=== PATIENT | male | born 1980 | race Caucasian/White ===

== ENCOUNTER 2021-03-17 16:24 | Emergency (ER) | payer MEDICAID, SELFPAY ==
[2021-03-17 16:27] VITALS: BP 155/109; PULSE 83; RESP 18; TEMP 36.7; O2SAT 99; BMI 25.8
--- NOTE | 2021-03-17 16:36 | XR_ITS ---
PROCEDURE INFORMATION: Exam: XR Left Foot Exam date and time: 03/17/2021 4:36 PM Age: 40 years old Clinical indication: Injury or trauma; Fall; Work related; Blunt trauma; Foot; Left; Injury date: Today; Additional info: Fall, pain TECHNIQUE: Imaging protocol: XR Left foot. Views: 3 or more views. COMPARISON: No relevant prior studies available. FINDINGS: Bones/joints: No evidence of acute fracture or dislocation. Note is made of old fracture deformities of the calcaneus. Note is again made of degenerative changes of the tibiotalar joint and internal fixation of the medial malleolus. Soft tissues: There is mild soft tissue swelling of the dorsum of the hindfoot. IMPRESSION: No evidence of acute fracture.
--- NOTE | 2021-03-17 16:36 | XR_ITS ---
PROCEDURE INFORMATION: Exam: XR Left Ankle Exam date and time: 03/17/2021 4:36 PM Age: 40 years old Clinical indication: Injury or trauma; Fall; Work related; Blunt trauma; Left; Injury date: Today; Injury details: Prior lt ankle surgery; Prior surgery; Surgery date: 6+ months; Additional info: Fall, pain TECHNIQUE: Imaging protocol: XR Left ankle. Views: 3 or more views. COMPARISON: No relevant prior studies available. FINDINGS: Bones/joints: No evidence of acute displaced fracture. Note is made of internal fixation of the medial malleolus. There are well corticated densities adjacent to the inferior aspect of the medial malleolus and adjacent to the anterior aspect of the distal tibia, likely the sequela of prior trauma. There is an irregular appearance of the distal tibia and the talar dome with lucencies of the lateral aspect of the tibial plafond and suspicious for degenerative changes. Soft tissues: There is mild soft tissue swelling surrounding the ankle joint. IMPRESSION: 1. No evidence of acute fracture. 2. Internal fixation of the medial malleolus. 3. Degenerative changes of the tibiotalar joint.
--- NOTE | 2021-03-17 16:36 | XR_ITS ---
PROCEDURE INFORMATION: Exam: XR Left Tibia and Fibula Exam date and time: 03/17/2021 4:36 PM Age: 40 years old Clinical indication: Injury or trauma; Fall; Work related; Blunt trauma; Left; Injury date: Today; Injury details: Prior lt ankle surgery; Prior surgery; Surgery date: 6+ months; Additional info: Fall, pain TECHNIQUE: Imaging protocol: XR Left tibia and fibula. Views: 2 views. COMPARISON: No relevant prior studies available. FINDINGS: Bones/joints: There is no acute fracture or dislocation. Note is made of internal fixation of the medial malleolus and a well corticated density along the inferior aspect of the medial malleolus, likely the sequela of prior trauma. Irregularity of the posterior malleolus may represent the sequela of prior trauma. Soft tissues: Normal. IMPRESSION: No evidence of acute fracture.
--- NOTE | 2021-03-17 16:37 | HMH.EDGENADL ---
ED Disposition Clinical Impression: Calcaneus fracture, left Qualifiers: Encounter type: initial encounter Calcaneus location: unspecified portion of calcaneus Fracture type: closed Fracture alignment: displaced Qualified Code(s): S92.002A - Unspecified fracture of left calcaneus, initial encounter for closed fracture Disposition: Home, Self-Care Condition on Discharge: Fair Instructions: DI for Foot Fracture Additional Instructions: You have been evaluated for injury to the left foot and ankle. Diagnosed with a calcaneus fracture. Please keep splint in place. Use crutches. Follow-up with Dr. Leslie Antonio in her clinic tomorrow morning at 8 AM. You will likely need surgery, but not until the swelling goes down. Take Tylenol and Motrin for pain. [place] for extreme pain. Zofran for nausea and vomiting. Return to the emergency department for any new or worsening symptoms, pain out of proportion, numbness or tingling in your foot Prescriptions: Hydrocod/Acet 5/325 mg [[place] 5/325mg tablet] 1 tab PO Q6HP PRN #12 tab PRN Reason: Severe Pain Transmission Status: Sent to [facility] ondansetron HCL [Ondansetron 4mg tab*] 4 mg PO TIDP PRN #12 tab PRN Reason: Vomiting Transmission Status: Pending to [facility] Referrals: Provider,Referral, [Primary Care Provider] - Morena Antonio DPM [Staff Physician] - Time of Disposition: 19:05 - Critical Care Critical Care Time: No Attestation: On , the high probability of a clinically significant, sudden or life threatening deterioration of the following system(s) required my full and direct attention, intervention and personal management. The time I documented below is in addition to time spent performing reported procedures but includes the following listed in this critical care notation. Medical Decision Making - Medical Records Medical records reviewed: Yes: I reviewed the patient's medical records. - [place] Inquiry Pt receiving controlled substance: No Vital Signs: 03/17/21 16:27 Temperature 98.0 F Temperature Source Oral Pulse Rate [Left Radial] 83 Respiratory Rate 18 Blood Pressure [Left Arm] 155/109 H Blood Pressure Mean [Left Arm] 124 Blood Pressure Source [Left Arm] Automatic Cuff Blood Pressure Position [Left Arm] Sitting 02 Sat by Pulse Oximetry 99 Oxygen Delivery Method Room Air Orders (Tests/Meds): ED MEDICATIONS Discontinued Medications Generic Name Dose Route Start Last Admin Trade Name Katherin PRN Reason Stop Dose Admin Hydromorphone HCl 1 mg 03/17/21 17:22 03/17/21 17:34 Hydromorphone 2mg/Ml Syringe IV 03/17/21 17:23 1 mg ONCE ONE Administration Morphine Sulfate 4 mg 03/17/21 16:37 03/17/21 16:44 Morphine 4mg/Ml Syringe IV 03/17/21 16:38 4 mg ONCE ONE Administration Ondansetron HCl 4 mg 03/17/21 16:37 03/17/21 16:44 Ondansetron 4mg/2ml Vial IV 03/17/21 16:38 4 mg ONCE ONE Administration - Radiology Data #1 Image(s): Tib/Fib, Ankle Image Reviewed: Yes I reviewed the patient's radiology results, Yes I reviewed the patient's radiology image Preliminary Findings: Normal/NAD IMPRESSION: 1. No evidence of acute fracture. 2. Internal fixation of the medial malleolus. 3. Degenerative changes of the tibiotalar joint. Medical Decision Narrative: In summary this is a 40-year-old male presenting to the emergency department with left foot and ankle pain after a trauma. Patient clinically on arrival. Vital signs within normal limits. He does appear to be quite uncomfortable. Concern for tibia fracture, fibula fracture, calcaneus fracture. Will obtain x-rays of the left foot and ankle. Patient given 4 mg IV morphine and 4 mg IV Zofran Patient still having severe pain after morphine. Given 1 mg IV Dilaudid. Plain film x-rays of the left tib-fib, ankle, foot do not show acute fracture or dislocation. Hardware is present. Given patient's degree of pain. Will obtain CT
--- NOTE | 2021-03-17 16:45 | PC.NURSE ---
rad notified of xray orders
--- NOTE | 2021-03-17 17:49 | CT_ITS ---
PROCEDURE INFORMATION: Exam: CT Left Lower Extremity Without Contrast, Ankle Exam date and time: 03/17/2021 5:49 PM Age: 40 years old Clinical indication: Injury or trauma; Fall; Blunt trauma; Ankle; Left; Prior surgery; Surgery date: 6+ months; Additional info: Fall, ankle pain TECHNIQUE: Imaging protocol: CT of the Left lower extremity without contrast was performed. Exam focused on the ankle. 3D rendering (Not supervised by radiologist): MIP and/or 3D reconstructed images were created by the technologist. Radiation optimization: All CT scans at this facility use at least one of these dose optimization techniques: automated exposure control; mA and/or kV adjustment per patient size (includes targeted exams where dose is matched to clinical indication); or iterative reconstruction. COMPARISON: CR XR ANKLE LT MIN 3V 03/17/2021 4:54 PM FINDINGS: Bones/joints: There is an acute, comminuted fracture of the calcaneus with mildly displaced fracture fragments. Fracture planes extend to articular surfaces with the talus. There is an internal fixation screw of the medial malleolus. There are well corticated densities adjacent to the distal tibia which likely represent the sequela of prior trauma. There are degenerative changes of the tibiotalar joint with subchondral cysts of the talar dome and the tibial plafond. The ankle mortise appears intact. Soft tissues: There is soft tissue swelling surrounding the ankle joint and visualized foot. IMPRESSION: Acute, comminuted fracture of the calcaneus with mildly displaced fracture fragments some of which extend to articular surfaces with the talus.
--- NOTE | 2021-03-17 18:50 | PC.NURSE ---
SPEAKING WITH DR DEE AT THIS TIME
[2021-03-17 19:27] VITALS: BP 149/81; PULSE 81; RESP 18; TEMP 36.7; O2SAT 99
== END 2021-03-17 19:29 | disposition home or self-care (01) ==
PROVIDERS: Emergency Provider Emergency Medicine
DX: S92.002A Unspecified fracture of left calcaneus, initial encounter for closed fracture (principal); W11.XXXA Fall on and from ladder, initial encounter; Y92.9 Unspecified place or not applicable
CPT/HCPCS: 29515; 73590; 73610; 73630; 73700; 99284; J2405

== ENCOUNTER → 2021-03-23 08:53 | Outpatient (CLI) | payer MEDICAID, SELFPAY ==
--- NOTE | 2021-03-23 09:11 | XR_ITS ---
PROCEDURE: XR CHEST 2V CLINICAL HISTORY: H/O TOBACCO USE,ASTHMA COMPARISON: No exams were available for comparison FINDINGS: The cardiomediastinal silhouette and pulmonary vascularity are within normal limits. No infiltrates or effusion. There is hyperexpansion with eventration of the hemidiaphragms consistent with COPD. In the left perihilar region there is a well-circumscribed 7 mm nodule which may represent a granuloma. Follow-up may confirm stability. Nipple ring artifact noted on the right No acute bony abnormalities. IMPRESSION: COPD changes. No acute finding. Probable granuloma left midlung which may be confirmed with follow-up Dictated by: Davide Gaona MD 03/23/2021 10:12 Davide Gaona MD in [place] 03/23/2021 10:12
[2021-03-23 09:19] LABS: Basophils % 0.7 % (0.1-2.0); Eosinophils # 0.3 K/mm3 (0.0-0.4); Eosinophils % 6.2 % (0.1-12.0); Hemoglobin 13.6 g/dL (14.1-18.0); Lymphocytes # 1.7 K/mm3 (0.7-4.5); Lymphocytes % 31.5 % (10-50); Mean Corpuscular HGB Conc 33.3 g/dL (31.8-35.4); Mean Corpuscular Volume 87.1 fl (80-94); Mean Platelet Volume 7.7 fl (7.4-10.4); Monocytes # 0.3 K/mm3 (0.1-1.0); Monocytes % 5.5 % (1.7-9.3); Neutrophils % 56.1 % (37.0-80.0); Platelet Count 300 K/mm3 (142-424); Red Blood Count 4.71 M/mm3 (4.60-6.20); Red Cell Distribution Width 13.6 % (11.5-17.5); White Blood Count 5.3 K/mm3 (4.8-10.8)
--- NOTE | 2021-03-23 09:52 | ECG_ITS ---
APPROVED REPORT Exam: Resting ECG HR:74 bpm ECG Measurements Heart Rate 74 AXES CO 176 P 75 QRSd 86 QRS 88 QT 358 T 69 QTc 397 Conclusion Normal sinus rhythm Normal ECG Electronically signed by : Jamie Luevano MD 03/24/2021 10:55:00
[2021-03-23 11:04] LABS: Alanine Aminotransferase 22 U/L (12-78); Albumin Level 3.6 g/dl (3.5-5.0); Albumin/Globulin Ratio 1.2 (1.1-1.8); Alkaline Phosphatase 73 U/L (38-126); Anion Gap 8.6 mEq/L (5-15); Aspartate Amino Transferase 34 U/L (17-59); Bilirubin,Total 0.2 mg/dl (0.2-1.3); Blood Urea Nitrogen 9 mg/dl (9-20); Calcium 9.3 mg/dl (8.4-10.2); Carbon Dioxide 28 mmol/L (22.0-30.0); Chloride 108 mmol/L (98-107); Estimated Glomerular Filt Rate 125 ml/min (>60); GFR (African American) 151 ML/MIN (>60); Glucose 120 mg/dl (74-100); Potassium 4.6 mmoL/L (3.5-5.1); Sodium 140 mmol/L (136-145); Total Protein,Serum 6.6 g/dl (6.3-8.2)
[2021-03-23 11:20] LABS: 25-OH Vitamin D, Total 35.9 ng/mL (30-100)
[2021-08-10 18:30] LABS: Cotinine 157.4; Nicotine 10.6
== END ==
PROVIDERS: Visit Provider Podiatrist
DX: Z01.812 Encounter for preprocedural laboratory examination (principal); Z11.52 Encounter for screening for COVID-19; S92.015A Nondisplaced fracture of body of left calcaneus, initial encounter for closed fracture
CPT/HCPCS: 36415; 71046; 80053; 80323; 82306; 85025; 93005; C9803; U0003; U0005

== ENCOUNTER 2021-03-25 06:02 | Day surgery (SDC) | payer MEDICAID, SELFPAY ==
[2021-03-25] VITALS (11 sets, daily range): BP systolic 108–150; BP diastolic 61–97; PULSE 77–105; RESP 15–20; TEMP 36.4–43; O2SAT 94–99; BMI 25.8
--- NOTE | 2021-03-25 | XR_ITS ---
PROCEDURE: XR CALCANEUS LT MIN 2V CLINICAL INDICATION: ORIF LT CALCANEUS. COMPARISON: No exams were available for comparison FINDINGS: Fluoroscopy time: 1.55 minutes. Single lateral view shows interval ORIF the comminuted calcaneal fracture with good alignment of the fracture fragments. IMPRESSION: S/p ORIF calcaneal fracture with C-arm assistance Dictated by: Davide Gaona MD 03/25/2021 16:39 Davide Gaona MD in [place] 03/25/2021 16:39
--- NOTE | 2021-03-25 06:59 | HMH.ANESCL ---
[facility] Anesthesia Checklist - Patient Identification Patient Identification: Arm Band - Structural Data Admitted From: Home Planned Operative Procedure/s: ORIF Consent for Planned Operative Procedure(s) Verified: Yes - NPO Status Verified Time NPO: 00:00 - Additional verifications Anesthesia Reactions: No Hx Blood Transfusions: No Blood Transfusion Reaction: No - Airway Assessment C-Spine Mobility Assessed: Yes TMJ Mobility Assessed: Yes Dentition: Good Dentition - Neurological Assessment Level of Consciousness: Awake Hx Seizures: No Numbness or tingling in extremities: No - Anesthesia Plan Anesthesia Risk discussed: Yes Anesthesia Plan: Verified ASA Class: II Anesthesia Type: General [facility] History I have reviewed the patient's past medical history: Yes Medical History: Reports:: Asthma (childhood) Denies:: Cancer, Diabetes Mellitus Type 1, Diabetes Mellitus Type 2, Internal Pacemaker, MRSA, Seizures *Have you ever received a pneumonia vaccine?: No *Have you received a flu vaccine this season?: No Other Medical History: Denies: Blood Transfusion Reaction Anesthesia experience/problems:: None Other Surgeries: No: Pacemaker Amputation: No Fractures: Yes - *Social History Last grade of school completed: GED Smoking Status: Current every day smoker Tobacco Type: cigarettes # Packs/Day (cigarettes): 1 Alcohol Intake: never Substance Use Type: heroin *Occupational Status:: employed Housing: house Household Members: spouse *Travel in the last 8 weeks: None Family Hx:: Cancer, Diabetes
--- NOTE | 2021-03-25 09:08 | SUR.OPER ---
0895 family updated regarding start of procedure
--- NOTE | 2021-03-25 11:00 | XR_ITS ---
PROCEDURE: XR FOOT LT MIN 3V XR CALCANEUS LEFT TWO VIEWS CLINICAL INDICATION: Post op COMPARISON: CT CT ANKLE LT WO CON from 03/17/2021 CR XR FOOT LT MIN 3V from 03/17/2021 CR XR CALCANEUS LT MIN 2V from 03/25/2021 FINDINGS: There is a cast in place. Status post ORIF of the comminuted calcaneal fracture with a large bone plate and multiple cortical screws from the lateral aspect of the calcaneus. There is good alignment. An additional oblique screw extends from the posterior calcaneus to the posterior subtalar region. Cannot determine from these images if the superior aspect of the screw is intra-articular. Follow-up exam after cast removed suggested for further evaluation there is an additional screw within the medial malleolar region which was present previously. Degenerative changes are present at the ankle joint. IMPRESSION: Status post ORIF of the comminuted calcaneal fracture with good alignment. The superior aspect of the oblique through through the posterior aspect of the calcaneus may extend into the articular surface of the subtalar joint difficult to ascertain. Follow-up suggested. Dictated by: Davide Gaona MD 03/25/2021 16:00 Davide Gaona MD in [place] 03/25/2021 16:00
--- NOTE | 2021-03-25 11:34 | HMH.ANESI ---
[facility] Anesthesia Record Part I Intake, IV Amount: 1,800 Estimated blood loss (mL): 20 Urine output (mL): 1,000 Blood Pressure: 130/80 SaO2: 96 Pulse Rate: 105 Respiratory Rate: 18 Temperature: 98.6 F Patient is:: Awake Stable to PACU at:: 11:32
--- NOTE | 2021-03-25 11:43 | HMH.OPNOTE ---
Date of procedure: 03/25/21 Pre-op Diagnosis:: 1. Left displaced calcaneus fracture 2. Left foot injury s/p fall from ladder 3. Traumatic ecchymosis Post-op Diagnosis:: Same Procedure performed:: 1. Left calcaneus ORIF 2. Application of LESLYE drain 3. Application of posterior splint Surgeon:: Morena Antonio DPM VALVE PIPE IRRIGATOR:: Ronni Mckoy Anesthesia: GETA, regional (Left pop/saph nerve block) Estimated blood loss (mL): 20 Clinical Note:: X-rays, CT reviewed and discussed with the patient. Conservative treatment discussed but not recommended. DOI: 03/17/21, patient fell off a ladder while painting. Denies back pain. Some neck soreness, muscle cramps. We discussed surgery. All risks and benefits were discussed including but not limited to: damage to blood vessels and nerves, bleeding, infection, wound complications, delayed, mal or non-union of bone, post-traumatic arthritis, need for further surgery, implant failure, need for removal of implant, prolonged or permanent swelling of the extremity, prolonged or permanent pain or deformity, CRPS/RSD, DVT/PE, and anesthetic complications including . No guarantees were given. All questions fully answered. The patient verbalized understanding and agreed to proceed with surgery. Consent was obtained. Necessary labs and pre-op testing ordered: CBC, BMP, EKG, CXR, nicotine/cotine levels, covid. Pt was given a Rx for [place] 7.5/325, Zofran, Motrin, Valium. Patient has crutches. He was given a foam off loading ramp. Discussed post op pain tx and compliance in detail. Application of unna boot and posterior splint in office. RICE protocol. Operative findings:: The left foot and ankle edema was improved. Traumatic ecchymosis improving. There was a joint depressed calcaneal fracture noted. Disruption of the subtalar joint including the middle and posterior facets. At least 4-5 main fracture fragments noted. Cartilage damage appreciated. Multiple small bony fragments with a calcaneal void noted. Bone quality soft. Overall significant joint depressed comminuted fragmented calcaneal fracture. This case took 1 hour longer than normal due to the significant amount of comminution and severity of the fracture. There was also scar tissue noted from previous ankle surgery around the proximal aspect of the patient. Operative note:: On this date and time patient was deemed an appropriate surgical candidate. Pre-op regional popliteal/saphenous nerve block performed by anesthesia. With informed consent signed, the patient was taken to the operating theater. The patient was positioned lateral, anesthesia was induced. Tourniquet was applied to the left thigh @250mmHg. The left lower extremity was prepped and draped in normal sterile fashion. Left Calcaneal Fracture ORIF: Attention was directed to the lateral foot where intra-op fluoroscopy was utilized to ruddy anatomical landmarks. A lateral extensile incision was made over the lateral heel full thickness down to bone. Care taken to retract the sural nerve and the peroneal tendons. Soft tissue flap was created and K wires used to safely retract soft tissue flap dorsally. Adequate exposure of the calcaneal fracture and subtalar joint noted. A Steinmann pin was inserted into the calcaneus from lateral to medial to use for reduction. The lateral wall of the fracture was removed revealing several comminuted small fracture fragments. Several fracture pieces extended into the middle and posterior facets of the subtalar joint. Hematoma removed. The joint was flushed with copious amounts of normal sterile saline. Intraoperative fluoroscopy was utilized. Steinmann pin used to joystick the calcaneal fracture out of varus. Several K wires were used as temporary fixation to hold the reduction. Intraoperative fluoroscopy was utilized to check pre-and post-reduction AP and lateral views. There was significant amount of bone loss and void noted. 10 cc of prodense bone putty was inserted in standard tech
--- NOTE | 2021-03-25 18:40 | HMH.ANESII ---
[facility] Anesthesia Record Part II Discharge Time: 12:02 Destination: Surgical Day Care (OP Surgery) PACU nurse assessment reviewed?: Yes Patient Condition:: Good Anesthesia Complications:: None Swallowing reflex intact?: Yes Cyanosis?: No Blood Pressure: 108/69 Pulse Rate: 94 Temperature: 97.8 F Mental Status: Alert & Oriented Pain level:: 0 Nausea and/or vomitting:: None Intake, IV Amount: 0
== END 2021-03-25 12:35 | disposition home or self-care (01) ==
PROVIDERS: Visit Provider Podiatrist
PROC: (CPT 28415; principal; 2021-03-25 07:30)
DX: S92.012A Displaced fracture of body of left calcaneus, initial encounter for closed fracture (principal); W11.XXXA Fall on and from ladder, initial encounter; Y93.H9 Activity, other involving exterior property and land maintenance, building and construction
CPT/HCPCS: 28415; 73630; 73650; 96374; C1713; C1776; J0131; J2405

== ENCOUNTER → 2021-04-07 16:36 | Outpatient (CLI) | payer MEDICAID, SELFPAY | PROVIDERS: Visit Provider Podiatrist | DX: S92.015D Nondisplaced fracture of body of left calcaneus, subsequent encounter for fracture with routine healing (principal); Z98.890 Other specified postprocedural states; B95.8 Unspecified staphylococcus as the cause of diseases classified elsewhere | CPT/HCPCS: 87070; 87077; 87186; 87205 ==

== ENCOUNTER → 2021-04-14 09:08 | Outpatient (CLI) | payer MEDICAID, SELFPAY | PROVIDERS: Visit Provider Podiatrist | DX: S92.002D Unspecified fracture of left calcaneus, subsequent encounter for fracture with routine healing (principal) ==

== ENCOUNTER → 2021-05-05 08:04 | Outpatient (CLI) | payer MEDICAID, SELFPAY ==
--- NOTE | 2021-05-05 08:10 | XR_ITS ---
PROCEDURE: XR CALCANEUS LT MIN 2V XR foot left 2-3 views CLINICAL INDICATION: s/p foot surgery COMPARISON: 03/25/2021 FINDINGS: S/p ORIF calcaneal fracture with lateral bone plate with an oblique screw through the posterior inferior aspect of the calcaneus directed cephalad to the subtalar region. Increased density in the mid to distal calcaneal area which may be due to bone cement. There is an oblique screw through the medial malleolar region. There is a cast in place. Degenerative changes with subchondral cystic changes of the anterior distal tibia. IMPRESSION: No change good alignment status post ORIF calcaneal fracture Dictated by: Davide Gaona MD 05/06/2021 08:41 Davide Gaona MD in [place] 05/06/2021 08:41
[2021-05-05 10:44] LABS: Amphetamine/Metha Screen,Urine Negative ng/ml (<1000)
[2021-05-05 10:45] LABS: Barbiturates Screen,Urine Negative ng/ml (<200)
[2021-05-05 10:46] LABS: Benzodiazepines Screen,Urine Positive ng/ml (<200); Cannabinoid Screen,Urine Positive ng/ml (<50)
[2021-05-05 10:47] LABS: Cocaine Screen,Urine Negative ng/ml (<300); Methadone Screen,Urine Negative ng/ml (<300)
[2021-05-05 10:48] LABS: Opiate Screen,Urine Positive ng/ml (<300)
[2021-05-05 10:49] LABS: Phencyclidine Screen,Urine Negative ng/ml (<25)
== END ==
PROVIDERS: Visit Provider Podiatrist
DX: S92.015D Nondisplaced fracture of body of left calcaneus, subsequent encounter for fracture with routine healing (principal); Z98.890 Other specified postprocedural states
CPT/HCPCS: 73630; 73650; 80305

== ENCOUNTER → 2021-05-05 09:38 | Outpatient (CLI) | payer MEDICAID, SELFPAY | PROVIDERS: Visit Provider Podiatrist | DX: Z79.899 Other long term (current) drug therapy (principal) | CPT/HCPCS: 80305 ==

== ENCOUNTER → 2021-05-25 12:33 | Outpatient (CLI) | payer MEDICAID, SELFPAY ==
--- NOTE | 2021-05-25 12:40 | XR_ITS ---
PROCEDURE: XR FOOT WT BEARING LT 3V CLINICAL INDICATION: fracture eval COMPARISON: CR XR FOOT LT MIN 3V from 03/17/2021 CR XR FOOT LT MIN 3V from 03/25/2021 CR XR FOOT WT BEARING LT 3V from 05/05/2021 FINDINGS: There is a cast in place. Status post ORIF of the calcaneus with good alignment. There is an oblique screw through the medial malleolar region. Bone plate is present along the lateral aspect of the calcaneus with an oblique screw also within the calcaneus from the proximal posterior surface to the posterior subtalar region. Degenerative changes are present with spurring of the anterior distal tibia. IMPRESSION: Good alignment status post ORIF calcaneus Dictated by: Davide Gaona MD 05/25/2021 14:29 Davide Gaona MD in [place] 05/25/2021 14:29
--- NOTE | 2021-05-25 12:40 | XR_ITS ---
PROCEDURE: XR CALCANEUS LT MIN 2V CLINICAL INDICATION: fracture eval COMPARISON: CR XR CALCANEUS LT MIN 2V from 03/25/2021 CR XR CALCANEUS LT MIN 2V from 05/05/2021 FINDINGS: Medial bone plate and oblique screw remain in place regarding the calcaneus. The study is obtained through a cast with limited bony detail. There does appear to be good alignment. Lateral malleolar screw also noted projecting on the images. Hyperdensity once again noted at the fracture site possibly due to indwelling bone cement. IMPRESSION: Good alignment status post ORIF calcaneus Dictated by: Davide Gaona MD 05/25/2021 13:36 Davide Gaona MD in [place] 05/25/2021 13:36
== END ==
PROVIDERS: Visit Provider Podiatrist
DX: S92.002A Unspecified fracture of left calcaneus, initial encounter for closed fracture (principal); Z98.890 Other specified postprocedural states
CPT/HCPCS: 73630; 73650

== ENCOUNTER → 2021-06-11 12:57 | Outpatient (CLI) | payer MEDICAID, SELFPAY | PROVIDERS: Visit Provider Nurse Practitioner | DX: Z20.822 Contact with and (suspected) exposure to COVID-19 (principal) | CPT/HCPCS: C9803; U0003; U0005 ==

== ENCOUNTER → 2021-08-27 08:28 | Outpatient (CLI) | payer MEDICAID, SELFPAY ==
--- NOTE | 2021-08-27 08:32 | XR_ITS ---
FINAL REPORT CLINICAL HISTORY: postop views COMPARISON: May 25, 2021 FINDINGS: LEFT CALCANEUS 2 views were obtained. Postoperative changes are again seen with a screw plate and screws present. A screw is present through the medial malleolus. Hardware is unchanged. The bony alignment is normal. Again noted is a comminuted calcaneal fracture. There are mild degenerative changes. IMPRESSION: Degenerative and postoperative changes as above. Reviewed, Interpreted and Dictated by Dhiraj Vu III, MD Transcribed by Hina Saxena Authenticated by Dhiraj Vu III, MD on 08/27/2021 10:26:24 AM [facility]
== END ==
PROVIDERS: Visit Provider Podiatrist
DX: S92.002A Unspecified fracture of left calcaneus, initial encounter for closed fracture (principal); Z98.890 Other specified postprocedural states
CPT/HCPCS: 73650

== ENCOUNTER 2021-09-18 08:19 | Emergency (ER) | payer MEDICAID, SELFPAY ==
[2021-09-18 08:20] VITALS: BP 155/92; PULSE 75; RESP 16; TEMP 36.7; O2SAT 98; BMI 25.8
--- NOTE | 2021-09-18 08:27 | HMH.EDGENADL ---
ED Disposition Clinical Impression: Neck abscess Disposition: Left Against Medical Advice Condition on Discharge: Fair Instructions: DI for Skin Abscess Additional Instructions: Bactrim as prescribed. Antibiotics or not definitive treatment for an abscess. You must have a surgically treated, incised and drained. Return to the hospital emergency department as soon as possible to have the abscess treated. Return immediately if any difficulty breathing or swallowing. Prescriptions: Sulfamethoxazole/Trimethoprim [Bactrim DS tablet] 1 each PO BID #20 tab Transmission Status: Received by [facility] Referrals: Provider,Referral, [Primary Care Provider] - - Critical Care Critical Care Time: No Attestation: On 09/18/21, the high probability of a clinically significant, sudden or life threatening deterioration of the following system(s) required my full and direct attention, intervention and personal management. The time I documented below is in addition to time spent performing reported procedures but includes the following listed in this critical care notation. Medical Decision Making - Medical Records Medical records reviewed: Yes: I reviewed the patient's medical records. 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 Sensitive to Bactrim and tetracycline. Resistant to clindamycin. - Rocky Inquiry Pt receiving controlled substance: No Vital Signs: 09/18/21 08:20 09/18/21 09:00 Temperature 98.1 F Temperature Source Oral Pulse Rate 79 Pulse Rate [Radial] 75 Respiratory Rate 16 16 Blood Pressure 142/88 H Blood Pressure [Right Arm] 155/92 H Blood Pressure Mean 112 Blood Pressure Mean [Right Arm] 113 Blood Pressure Position [Right Arm] Sitting 02 Sat by Pulse Oximetry 98 97 Oxygen Delivery Method Room Air Medical Decision Narrative: I am concerned about the location of the abscess and the size, potential involvement of deeper structures or danger to deeper structures with incision and drainage. Call placed to Dr. Soto ENT, I left a message with him to attempt phone consult and potentially have him do images of the abscess to discuss management. Call placed to Dr. Flores, general surgery on-call. He is currently doing an endoscopy and will reportedly call back after procedure is finished. 9:00 AM: Discussed management with patient. I have not received call back from ENT or general surgery. Discussed IV, blood work, CT scan to assess the extent of the abscess. He refuses. He also at this time states that he does not want to wait any longer for call back from surgery. I am unable to convince him to wait even a short period of time. He says he has things to do today and was hoping he could just come in and get it cut open and be put on antibiotics. I advised him of my concern about the size, location, and extent of the abscess. I advised him if surgery feels it is acceptable to incise and drain in the emergency department I would certainly go ahead and perform the procedure. He states that he would rather just leave and come back to the emergency room when he has time to get it taken care of. He will sign out AMA. 9:15 AM: Received call from Dr. Soto after patient had signed out AGAINST MEDICAL ADVICE. Dr. Soto states that he definitely would have wanted a CT scan of the neck before any surgical intervention was to be performed and recommends that this be done before any surgical treatment if the patient returns to the emergency room. 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 He tried injecting meth into his neck and missed . He says that he has had a smal
[2021-09-18 09:00] VITALS: BP 142/88; PULSE 79; RESP 16; O2SAT 97
--- NOTE | 2021-09-18 09:17 | PC.NURSE ---
on the phone with .
[2021-09-18 09:58] VITALS: BP 137/74; PULSE 78; RESP 16; TEMP 36.9; O2SAT 98
== END 2021-09-18 09:59 | disposition left against medical advice (07) ==
PROVIDERS: Emergency Provider Emergency Medicine
DX: L02.11 Cutaneous abscess of neck (principal); J45.909 Unspecified asthma, uncomplicated; F17.210 Nicotine dependence, cigarettes, uncomplicated
CPT/HCPCS: 99283

== ENCOUNTER 2021-09-20 11:04 | Emergency (ER) | payer MEDICAID, SELFPAY ==
--- NOTE | 2021-09-20 11:08 | PC.NURSE ---
ED MD at
[2021-09-20 11:09] VITALS: BP 167/89; PULSE 87; RESP 17; TEMP 36.8; O2SAT 98; BMI 25.8
--- NOTE | 2021-09-20 11:11 | CT_ITS ---
PROCEDURE INFORMATION: Exam: CT Neck With Contrast Exam date and time: 09/20/2021 11:29 AM Age: 41 years old Clinical indication: Abscess, cutaneous and mass, lump, or swelling in neck; Anterior; Additional info: Abscess// on anterior front of neck right around of below [place] area TECHNIQUE: Imaging protocol: Computed tomography images of the neck with contrast. Radiation optimization: All CT scans at this facility use at least one of these dose optimization techniques: automated exposure control; mA and/or kV adjustment per patient size (includes targeted exams where dose is matched to clinical indication); or iterative reconstruction. Contrast material: ISOVUE; Contrast volume: 75 ml; Contrast route: IV; COMPARISON: CR XR CHEST 2V 03/23/2021 9:25 AM FINDINGS: Paranasal sinuses: Moderate mucosal thickening and debris within the visualized left maxillary sinus. Nasopharynx: Unremarkable. Oropharynx: Unremarkable. No significant tonsillar enlargement. Hypopharynx: Unremarkable. Larynx: Unremarkable. Normal epiglottis. Retropharyngeal space: Unremarkable. Submandibular/Parotid glands: Normal. Glands are normal in size. Thyroid: Unremarkable. Lymph nodes: Left-sided cervical lymph nodes are slightly more prominent than on the right. A left upper cervical lymph node or cyst at the upper limits of normal for size measuring up to 1.3 cm. Findings are nonspecific and may be reactive. Trachea: Visualized trachea is unremarkable. Lungs: Small subpleural cyst in the left suprahilar region. Bones/joints: [id number] multilevel spondylosis. Soft tissues: In the anterior neck left paramidline in the soft tissues anterior to the thyroid gland is a complex appearing hypodense mass measuring approximately 3.2 by 2.6 by 3.4 cm. This has some peripheral enhancement and appears mildly complex. Question abscess versus neoplasm. An infected thyroglossal duct cyst is a consideration. There is moderate surrounding soft tissue swelling in the neck. Small amount of soft tissue in the anterior mediastinum, likely residual thymic tissue. Other findings: Evaluation of the base of the neck and upper lungs is severely limited by motion artifact. IMPRESSION: In the anterior neck left paramidline in the soft tissues anterior to the thyroid gland is a complex appearing hypodense mass measuring approximately 3.2 by 2.6 by 3.4 cm. This has some peripheral enhancement and appears mildly complex. Question abscess versus neoplasm. An infected thyroglossal duct cyst is a consideration. Please see the body of the report for details and other findings.
--- NOTE | 2021-09-20 11:13 | HMH.EDGENADL ---
ED Disposition Clinical Impression: Neck abscess, IVDU (intravenous drug user) Disposition: Left Against Medical Advice Condition on Discharge: Fair Instructions: DI for Skin Abscess Additional Instructions: You have been evaluated for an abscess on the neck. This is complex and in a very dangerous area. We have recommended admission for IV antibiotics. You have decided that you cannot be admitted and will go home AGAINST MEDICAL ADVICE. Please continue taking Bactrim twice daily. It is very important that you follow-up with an ENT specialist within 24 hours for wound recheck. I have consulted Dr. Umana, he is working in [place] tomorrow. Please call the office for an appointment in [place] or [place]. The office number is [phone]. Return to the emergency department at once for any new or worsening symptoms, pain, fevers, vomiting, other concerns. Referrals: Provider,Referral, [Primary Care Provider] - Eddie Bo MD [Staff Physician] - Higinio Umana V [Referring] - Time of Disposition: 13:24 - Critical Care Critical Care Time: No Attestation: On , the high probability of a clinically significant, sudden or life threatening deterioration of the following system(s) required my full and direct attention, intervention and personal management. The time I documented below is in addition to time spent performing reported procedures but includes the following listed in this critical care notation. Medical Decision Making - Medical Records Medical records reviewed: Yes: I reviewed the patient's medical records. - Rocky Inquiry Pt receiving controlled substance: No Vital Signs: 09/20/21 11:09 09/20/21 11:15 09/20/21 12:49 Temperature 98.2 F Temperature Source Oral Pulse Rate 88 92 H Pulse Rate [Left Radial] 87 Respiratory Rate 17 Blood Pressure 142/85 H 142/85 H Blood Pressure [Right Arm] 167/89 H Blood Pressure Mean 97 Blood Pressure Mean [Right Arm] 115 02 Sat by Pulse Oximetry 98 97 97 Oxygen Delivery Method 09/20/21 13:28 Temperature 98.2 F Temperature Source Oral Pulse Rate 90 Pulse Rate [Left Radial] Respiratory Rate 17 Blood Pressure 135/74 Blood Pressure [Right Arm] Blood Pressure Mean Blood Pressure Mean [Right Arm] 02 Sat by Pulse Oximetry Oxygen Delivery Method Room Air - Lab Data Lab Results 09/20/21 11:30: WBC 6.3, RBC 5.06, Hgb 14.1, Hct 43.2, MCV 85.4, MCH 27.8, MCHC 32.6, RDW 14.0, Plt Count 261, MPV 8.0, Neut % (Auto) 68.6, Lymph % (Auto) 18.2, [place] % (Auto) 7.2, Eos % (Auto) 4.9, Baso % (Auto) 1.2, Neut # (Auto) 4.3, Lymph # (Auto) 1.2, [place] # (Auto) 0.5, Eos # (Auto) 0.3, Baso # (Auto) 0.1 09/20/21 11:30: Sodium 137, Potassium 3.9, Chloride 109 H, Carbon Dioxide 22, Anion Gap 9.9, BUN 11, Creatinine 0.80, Estimated Creat Clear 125, Estimated GFR 107, Est GFR ( Amer) 129, Glucose 102 H, Calcium 8.3 L, Total Bilirubin 0.4, AST 33, ALT 22, Alkaline Phosphatase 120, Total Protein 6.8, Albumin 3.6, Globulin 3.2, Albumin/Globulin Ratio 1.1, Procalcitonin 0.061 09/20/21 11:30: Lactate 0.5 L Result diagrams: 09/20/21 11:30 09/20/21 11:30 Orders (Tests/Meds): ED MEDICATIONS Discontinued Medications Generic Name Dose Route Start Last Admin Trade Name Freq PRN Reason Stop Dose Admin Clindamycin Phosphate 600 mg/ 104 mls @ 100 mls/hr 09/20/21 12:35 09/20/21 12:39 Sodium Chloride IV 09/20/21 13:37 100 mls/hr ONCE ONE Administration Iopamidol 75 ml 09/20/21 11:39 09/20/21 11:39 Iopamidol-370 (76%);100ml Bottle IV 09/20/21 11:40 75 ml ONCE ONE Administration Lidocaine HCl 1 ml 09/20/21 12:23 09/20/21 12:39 Lidocaine 4% Topical Soln 1ml TP 09/20/21 12:24 1 ml ONCE ONE Administration Lidocaine HCl 5 ml 09/20/21 12:49 09/20/21 13:27 Lidocaine 1% 10ml Mdv SQ 09/20/21 12:50 5 ml ONCE ONE Administration Sodium Chloride 10 ml 09/20/21 11:39 09/20/21 11:39 Sodium Chlori
[2021-09-20 11:15] VITALS: BP 142/85; PULSE 88; O2SAT 97
--- NOTE | 2021-09-20 11:31 | PC.NURSE ---
patient to radiology with technology applications consultant
--- NOTE | 2021-09-20 11:37 | PC.NURSE ---
pt back from rad
[2021-09-20 11:39] LABS: Basophils # 0.1 K/mm3 (0-0.2); Basophils % 1.2 % (0.1-2.0); Eosinophils # 0.3 K/mm3 (0.0-0.4); Eosinophils % 4.9 % (0.1-12.0); Hematocrit 43.2 % (42.0-52.0); Hemoglobin 14.1 g/dL (14.1-18.0); Lymphocytes # 1.2 K/mm3 (0.7-4.5); Lymphocytes % 18.2 % (10-50); Mean Corpuscular HGB Conc 32.6 g/dL (31.8-35.4); Mean Corpuscular Hemoglobin 27.8 pg (27.0-31.2); Mean Corpuscular Volume 85.4 fl (80-94); Monocytes # 0.5 K/mm3 (0.1-1.0); Monocytes % 7.2 % (1.7-9.3); Neutrophils # 4.3 K/mm3 (1.8-7.8); Neutrophils % 68.6 % (37.0-80.0); Platelet Count 261 K/mm3 (142-424); Red Blood Count 5.06 M/mm3 (4.60-6.20); White Blood Count 6.3 K/mm3 (4.8-10.8)
[2021-09-20 11:50] LABS: Chloride 109 mmol/L (98-107); Potassium 3.9 mmoL/L (3.5-5.1); Sodium 137 mmol/L (136-145)
[2021-09-20 11:53] LABS: Alanine Aminotransferase 22 U/L (12-78); Albumin Level 3.6 g/dl (3.5-5.0); Albumin/Globulin Ratio 1.1 (1.1-1.8); Alkaline Phosphatase 120 U/L (38-126); Anion Gap 9.9 mEq/L (5-15); Aspartate Amino Transferase 33 U/L (17-59); Bilirubin,Total 0.4 mg/dl (0.2-1.3); Blood Urea Nitrogen 11 mg/dl (9-20); Carbon Dioxide 22 mmol/L (22.0-30.0); Creatinine Clearance Estimated 125 mL/min (50-200); Estimated Glomerular Filt Rate 107 ml/min (>60); GFR (African American) 129 ML/MIN (>60); Globulin 3.2 g/dL (1.3-3.2); Total Protein,Serum 6.8 g/dl (6.3-8.2)
[2021-09-20 11:54] LABS: Calcium 8.3 mg/dl (8.4-10.2); Glucose 102 mg/dl (74-100); Lactic Acid 0.5 mmol/L (0.7-2.1)
[2021-09-20 12:15] LABS: Procalcitonin 0.061 ng/mL (0.0-2.0)
--- NOTE | 2021-09-20 12:24 | PC.NURSE ---
Paged Dr. Flores for ED MD
--- NOTE | 2021-09-20 12:25 | PC.NURSE ---
DYLON MD on phone with DR. Flores
--- NOTE | 2021-09-20 12:33 | PC.NURSE ---
ED MD at for update on POC
--- NOTE | 2021-09-20 12:37 | PC.NURSE ---
Dr Soto paged for ENT
[2021-09-20 12:49] VITALS: BP 142/85; PULSE 92; O2SAT 97
--- NOTE | 2021-09-20 12:51 | PC.NURSE ---
ED MD on phone with ENT for consult
--- NOTE | 2021-09-20 12:52 | PC.NURSE ---
Dr. Turner speaking with ENT [place] construction supervisor.
--- NOTE | 2021-09-20 13:09 | PC.NURSE ---
ED MD at for procedure; JULIA Hidalgo at bedside assisting
[2021-09-20 13:28] VITALS: BP 135/74; PULSE 90; RESP 17; TEMP 36.8; O2SAT 99
== END 2021-09-20 13:28 | disposition left against medical advice (07) ==
PROVIDERS: Emergency Provider Emergency Medicine
DX: L02.11 Cutaneous abscess of neck (principal); B96.89 Other specified bacterial agents as the cause of diseases classified elsewhere; D72.829 Elevated white blood cell count, unspecified; F17.210 Nicotine dependence, cigarettes, uncomplicated; Z79.1 Long term (current) use of non-steroidal anti-inflammatories (NSAID); Z79.899 Other long term (current) drug therapy; Z83.3 Family history of diabetes mellitus; Z80.9 Family history of malignant neoplasm, unspecified
CPT/HCPCS: 70491; 80053; 83605; 84145; 85025; 87040; 87070; 87077; 87205; 96365; 96374; 99285; Q9967

== ENCOUNTER 2021-09-22 12:22 | Emergency (ER) | payer MEDICAID, SELFPAY ==
[2021-09-22 12:24] VITALS: BP 118/80; PULSE 66; RESP 18; TEMP 36.6; O2SAT 100; BMI 25.8
--- NOTE | 2021-09-22 12:31 | HMH.EDGENADL ---
ED Disposition Clinical Impression: Abscess, neck Disposition: Home, Self-Care Condition on Discharge: Good Additional Instructions: Finish antibiotics as prescribed. Follow-up with ENT, Dr. Soto, as scheduled. Return to the emergency room if any worsening, severe pain, increasing swelling, difficulty swallowing or breathing, or fever. Referrals: Provider,Referral, [Primary Care Provider] - - Critical Care Critical Care Time: No Attestation: On 09/22/21, the high probability of a clinically significant, sudden or life threatening deterioration of the following system(s) required my full and direct attention, intervention and personal management. The time I documented below is in addition to time spent performing reported procedures but includes the following listed in this critical care notation. Medical Decision Making - Medical Records Medical records reviewed: Yes: I reviewed the patient's medical records. MR Comment: Reviewed CT result. Reviewed emergency department note from 09/20/2021. Admission for IV antibiotics was recommended, but the patient refused and signed out AGAINST MEDICAL ADVICE. Reviewed Gram stain and culture result. Gram stain shows few gram-positive cocci, culture pending. - Rocky Inquiry Pt receiving controlled substance: No Medical Decision Narrative: I do not think there is any packing remaining. He describes a 3 inch piece that came out of the wound. Advised there should not be 2 separate pieces of packing within the wound and his description would be a typical amount of packing to come out of this abscess. I do not feel it needs to be reopened. There is no fluctuance or cellulitis. It appears to be resolving very well. He can finish his antibiotics and follow-up with ENT as scheduled. General Adult HPI - General Stated complaint: packing removal Time Seen by Provider: 09/22/21 12:31 - History of Present Illness HPI narrative: Patient arrives for packing removal and reevaluation of neck abscess. Initially seen by me in this emergency department on 09/18/2021 with a large anterior neck abscess. At that time CT recommended prior to any surgical intervention but he refused and signed out AGAINST MEDICAL ADVICE, stated he did not have the time to do it that day. He returned 2 days ago and had a CT scan of his neck and blood work. Results of CT scan reviewed. Showed a complex abscess in the soft tissues without deep structure involvement. Per physician's note, the abscess was already draining. It was unroofed and packed. Patient says that since that visit the packing came out. He describes a piece about 3 inches long. He was concerned that there was more packing still inside of it to be removed. He says that he tried several ear nose and throat physicians for follow-up as instructed. Dr. Umana, to whom he was referred, apparently did not take his insurance. He has an appointment to be followed up by ENT at this hospital on 09/30/2021. He is currently taking Bactrim. - Related Data Home Medications Medication Instructions Recorded Confirmed Buprenorphine HCl/Naloxone HCl 0.5 tab PO DIRECTED 03/17/21 08/27/21 [Buprenorphine-Nalox 8-2 mg Tab] Previous Rx's Medication Instructions Recorded ibuprofen 600 mg tablet 600 mg PO TID PRN 30 Days #90 tab 04/28/21 mupirocin 2 % topical ointment 1 applic TOPICAL BID #30 g 05/27/21 Sulfamethoxazole/Trimethoprim 1 each PO BID #20 tab 09/18/21 [Bactrim DS tablet] Allergies Allergy/AdvReac Type Severity Reaction Status Date / Time No Known Allergies Allergy Verified 08/27/21 09:00 [facility] History - Hepatitis A Screen Attestation statement:: This patient has been screened for Hepatitis A risk factors. I have reviewed the patient's past medical history: Yes Medical History: Reports:: Asthma Denies:: Cancer, Diabetes Mellitus Type 1, Diabetes Mellitus Type 2, Internal Pacemaker, MRSA, Seizures Other
[2021-09-22 12:46] VITALS: BP 118/80; PULSE 66; RESP 18; TEMP 36.6; O2SAT 100
== END 2021-09-22 12:49 | disposition home or self-care (01) ==
PROVIDERS: Emergency Provider Emergency Medicine
DX: L02.11 Cutaneous abscess of neck (principal)
CPT/HCPCS: 99281